=== PATIENT | male | born 1995 | race Caucasian/White ===

== ENCOUNTER 2017-08-08 13:26 | Emergency (ER) | payer OTHER ==
[2017-08-08 13:45] VITALS: RESP 18
[2017-08-08] MEDS ORDERED: CEPHALEXIN 500MG STARTER PACK 4 CAP BTL PO STA (14:51)
--- NOTE | 2017-08-08 14:58 | ED ---
General Adult HPI - General Chief complaint: Wound/Laceration Stated complaint: [facility]- contour grinder hit in leg Time Seen by Provider: 08/08/17 14:19 Source: patient, EMS, RN notes reviewed Mode of arrival: EMS Limitations: no limitations - History of Present Illness Initial comments: Chief complaint history of present illness a 22-year-old male who while on the job accidentally had an angle contour grinder kicked back causing an abrasion to his inner proximal right thigh and causing a jagged laceration measuring 6 cm to the scrotum. - Related Data Previous Rx's Medication Instructions Recorded Cephalexin [Keflex] 500 mg PO Q6HR #28 cap 08/08/17 Allergies Allergy/AdvReac Type Severity Reaction Status Date / Time No Known Allergies Allergy Verified 08/08/17 13:53 Review of Systems ROS Statement: Those systems with pertinent positive or pertinent negative responses have been documented in the HPI. View of systems no other complaints other than discomfort to the right proximal thigh and laceration to the scrotum on the right side. All systems are reviewed. Patient's last tetanus shot was 7 months ago. Patient denies any ALLERGIES. Patient denies any chronic medical problems. No surgeries. Patient 's family history is unknown he was adopted. Denies ALLERGIES she was tobacco drink alcohol socially. ROS Other: All systems not noted in ROS Statement are negative. Past Medical History Past Medical History: No Reported History History of Any Multi-Drug Resistant Organisms: None Reported Past Surgical History: No Surgical Hx Reported Past Psychological History: No Psychological Hx Reported Smoking Status: Never smoker Past Alcohol Use History: Occasional Past Drug Use History: None Reported General Exam - General Exam Comments Initial Comments: Physical exam; no signs show temperature 98.6 pulse 94 respiratory rate 18 pulse ox 99% room air blood pressure 120/59. The patient's only complaint is abdomen abrasion to the inner proximal right thigh this is cleaned and dressed with bacitracin and Adaptic. This also presents with a laceration to the scrotal Deysi overlying his right testicle. It is jagged and measures approximately 6 cm. No active bleeding noted. No other complaints no other irregularities on the physical examination. Limitations: no limitations Course Vital Signs 08/08/17 13:37 Temperature 98.6 F Pulse Rate 94 Respiratory 18 Rate Blood Pressure 120/59 O2 Sat by Pulse 99 Oximetry Procedures - Procedures Initial comment: Seizure; using sterile technique the scrotal laceration was cleaned well Betadine normal saline solution. It was anesthetized percent Xylocaine. The jagged edge of the scrotum was debrided. The wound edges are approximated with 8 simple interrupted sutures of 4-0 nylon. Bacitracin was applied. Patient has been advised to return in 8 days for suture to remove her sugar signs of infection. Medical Decision Making - Medical Decision Making Vital decision making. The patient's abrasion on his leg was clean and covered with bacitracin. His scrotal laceration was cleaned and sutured. He'll be placed on cephalexin which was started in emergency room. Told to return in 8 days to have sutures removed earlier should be signs of infection. Disposition Clinical Impression: Laceration of scrotum Disposition: HOME SELF-CARE Condition: Fair Instructions: Laceration (ED) Additional Instructions: Return in 8 days for suture to remove. Take cephalexin 4 times daily for the next week. Return emergency room if he have infection. Prescriptions: Cephalexin [Keflex] 500 mg PO Q6HR #28 cap Referrals: None,Stated [Primary Care Provider] - 1-2 days Time of Disposition: 14:58
[2017-08-08 15:16] VITALS: BP 129/71; PULSE 80; TEMP 98.4
== END 2017-08-08 15:16 | disposition home or self-care (01) ==
LOC: EC 13:26
DX: S31.31XA Laceration without foreign body of scrotum and testes, initial encounter (principal); S70.311A Abrasion, right thigh, initial encounter; W22.8XXA Striking against or struck by other objects, initial encounter
CPT/HCPCS: 12002; 99283